=== PATIENT | female | born 1955 | race Caucasian/White ===

== ENCOUNTER 2017-10-24 09:17 | Inpatient (IN) | payer OTHER ==
[2017-10-21 11:15] VITALS: BMI 22.6
--- NOTE | 2017-10-24 08:02 | HP ---
Admitting History and Physical - Admission Chief Complaint: left hip osteoarthritis x years History of Present Illness: 62-year-old female presenting in regard to her left hip. Long-standing history of left hip osteoarthritis. Patient complains of pain, limited range of motion, difficulty ambulating, and difficulty with activities of daily living including putting on her socks and shoes. Patient has failed conservative treatment measures including PO medications, injections, exercise program, and activity modification. At this point she would like to proceed with a left total hip arthroplasty, MAKOplasty. History Source: Patient - Past Medical History Cardiovascular: Yes: HTN, Hyperlipdemia ...: No Musculoskeletal: Yes: Osteoarthritis - Smoking History Smoking history: Current every day smoker Have you smoked in the past 12 months: No Aproximately how many cigarettes per day: 2 - Alcohol/Substance Use Hx Alcohol Use: No Home Medications - Allergies Allergies/Adverse Reactions: Allergies Allergy/AdvReac Type Severity Reaction Status Date / Time No Known Allergies Allergy Verified 10/21/17 11:05 - Home Medications Home Medications: Ambulatory Orders Amlodipine Besylate [Norvasc -] 5 mg PO DAILY 10/21/17 Aspirin [ASA -] 325 mg PO DAILY 10/21/17 Multivitamins [Tab-A-Vit -] 1 tab PO DAILY 10/21/17 Simvastatin 5 mg PO HS 10/21/17 Review of Systems - Review of Systems Musculoskeletal: reports: Decreased ROM (left hip) Physical Examination Constitutional: Yes: Well Nourished, No Distress Eyes: Yes: Conjunctiva Clear HENT: Yes: Atraumatic, Normocephalic Neck: Yes: Supple Cardiovascular: Yes: Regular Rate and Rhythm Respiratory: Yes: Regular Gastrointestinal: Yes: Soft ...Rectal Exam: Yes: Guaiac Trace Musculoskeletal: Yes: Joint Stiffness (left hip) Assessment/Plan 62-year-old female presenting in regard to her left hip. Long-standing history of left hip osteoarthritis. Patient complains of pain, limited range of motion, difficulty ambulating, and difficulty with activities of daily living including putting on her socks and shoes. Patient has failed conservative treatment measures including PO medications, injections, exercise program, and activity modification. Pros, cins, risks, benefits, and alternatives of a left total hip arthroplasty MAKOplasty were discussed. Patient confirms her understanding and she would like to proceed with a left total hip arthroplasty, MAKOplasty.
[~2017-10-24 09:17] MED LIST: CEFAZOLIN 1 GM/D5W 1 GM/50 ML BAG IVPB ONE; ROPIVICAINE 0.2%/MORPH PF/KETOROLAC - 51ML DISP.SYRINGE IA ONE; TRANEXAMIC ACID 1000 MG/10 ML VIAL IVPUSH ONE
[2017-10-24] MEDS ORDERED: MIDAZOLAM HCL 2 MG/2 ML SINGLE DOSE VIAL ONE (09:50)
[2017-10-24] MEDS ORDERED: DEXAMETHASONE SOD PHOSPHATE/PF 10 MG/ML SDV ONE (09:50)
[2017-10-24] MEDS ORDERED: BUPIVACAINE HCL/PF (5 MG/ML) 30 ML VIAL IJ ONE (09:50)
[2017-10-24] MEDS ORDERED: EPINEPHrine/PF 1 MG/1 ML (1:1,000) AMPULE ONE (09:50)
[2017-10-24] MEDS ORDERED: PANTOPRAZOLE 40 MG TABLET (FP) ONE (10:36)
[2017-10-24] MEDS ORDERED: GABAPENTIN 300 MG CAPSULE (FP) ONE (10:37)
[2017-10-24] MEDS ORDERED: CELECOXIB 200 MG CAPSULE ONE (10:37)
[2017-10-24] MEDS ORDERED: oxyCODONE HCL 10 MG SUSTAINED ACTING TABLET ONE (10:37)
[2017-10-24] MEDS: CELECOXIB 200 MG CAPSULE PO ONE ×2 (10:40→16:27)
[2017-10-24] MEDS: GABAPENTIN 300 MG CAPSULE (FP) PO ONE ×2 (10:40→16:27)
[2017-10-24] MEDS: PANTOPRAZOLE 40 MG TABLET (FP) PO ONE ×2 (10:40→16:28)
[2017-10-24] MEDS: oxyCODONE HCL 10 MG SUSTAINED ACTING TABLET PO ONE ×2 (10:40→16:27)
[2017-10-24] MEDS ORDERED: BUPIVACAINE HCL/PF 0.5% (5MG/ML) 10 ML VIAL ONE (11:36)
[2017-10-24] MEDS ORDERED: ceFAZolin SODIUM 1 GM VIAL ONE (11:39)
[2017-10-24] MEDS ORDERED: TRANEXAMIC ACID 1000 MG/10 ML VIAL ONE (11:39)
[2017-10-24] MEDS ORDERED: ONDANSETRON 4 MG/2 ML VIAL IVPUSH PRN ×2 (12:33→14:51)
[2017-10-24] MEDS ORDERED: oxyCODONE HCL 5 MG TABLET PO PRN (12:37)
[2017-10-24] MEDS ORDERED: VANCOMYCIN 1,000 MG VIAL (RESTRICTED TO ID ONLY) IVPB ONE (12:43)
[2017-10-24] MEDS ORDERED: LACTATED RINGERS SOLUTION 1,000 ML IV SCH ×2 (12:45→15:00)
[2017-10-24] MEDS ORDERED: ROPIVICAINE 0.2%/MORPH PF/KETOROLAC - 51ML DISP.SYRINGE IA ONE (12:57)
[2017-10-24] MEDS ORDERED: TRANEXAMIC ACID 1000 MG/10 ML VIAL IVPB ONE (12:58)
--- NOTE | 2017-10-24 14:38 | OP ---
Operative Note - Note: Operative Date: 10/24/17 Pre-Operative Diagnosis: Left hip OA Operation: Left BRENDA Post-Operative Diagnosis: Same as Pre-op Surgeon: Omar Aquino Medical Supervisor: Kathie Levi Anesthesia: Spinal Estimated Blood Loss (mls): 200
[2017-10-24] MEDS ORDERED: traMADol HCL 50 MG TABLET ONE (14:41)
[2017-10-24] MEDS ORDERED: ACETAMINOPHEN INJECTION 100 ML IVPB ONE (14:41)
[2017-10-24] MEDS ORDERED: KETOROLAC TROMETHAMINE 30 MG/1 ML VIAL ONE (14:41)
[2017-10-24] MEDS ORDERED: MAGNESIUM HYDROX 2400MG/30ML ORAL SUSPENSION 30 ML CUP PO PRN (14:51)
[2017-10-24] MEDS ORDERED: MAG HYDROX/AL HYDROX/SIMETH 30 ML UNIT-DOSE CUP PO PRN (14:51)
[2017-10-24] MEDS ORDERED: ACETAMINOPHEN 1000 MG/100 ML VIAL (NON FORMULARY) IVPB ONE (14:55)
[2017-10-24] MEDS ORDERED: traMADol HCL 50 MG TABLET PO SCH (15:00)
[2017-10-24] MEDS: KETOROLAC TROMETHAMINE 30 MG/1 ML VIAL IVPUSH SCH ×2 (15:09→20:45)
[2017-10-24] MEDS: ACETAMINOPHEN 325 MG TABLET (FP) PO SCH ×2 (16:28→18:18)
[2017-10-24] MEDS: traMADol HCL 50 MG TABLET PO SCH ×2 (17:55→23:45)
[2017-10-24] MEDS: CEFAZOLIN 1 GM/D5W 1 GM/50 ML BAG IVPB SCH (18:03)
[2017-10-24] MEDS: ASCORBIC ACID 500 MG TABLET (FP) PO SCH (21:33)
[2017-10-24] MEDS: SENNOSIDES/DOCUSATE COMBO (SENNA PLUS) TABLET (UD) PO SCH (21:33)
[2017-10-24] MEDS: GABAPENTIN 300 MG CAPSULE (FP) PO SCH (21:33)
[2017-10-24] MEDS: CELECOXIB 200 MG CAPSULE PO SCH (21:34)
[2017-10-24] MEDS: oxyCODONE HCL 10 MG SUSTAINED ACTING TABLET PO SCH (21:34)
[2017-10-24] MEDS ORDERED: SIMVASTATIN 5 MG PO SCH (22:00)
[2017-10-24] MEDS ORDERED: GABAPENTIN 300 MG CAPSULE (FP) PO SCH (22:00)
[2017-10-24] MEDS ORDERED: DEXAMETHASONE SOD PHOSPHATE 10 MG/1 ML VIAL IVPB ONE (23:00)
[2017-10-25] MEDS: ACETAMINOPHEN 325 MG TABLET (FP) PO SCH ×4 (00:27→18:01)
[2017-10-25] MEDS: oxyCODONE HCL 5 MG TABLET PO PRN ×3 (00:27→18:02)
[2017-10-25] MEDS: CEFAZOLIN 1 GM/D5W 1 GM/50 ML BAG IVPB SCH (01:42)
[2017-10-25] MEDS: KETOROLAC TROMETHAMINE 30 MG/1 ML VIAL IVPUSH SCH ×2 (03:29→10:11)
[2017-10-25] MEDS: GABAPENTIN 300 MG CAPSULE (FP) PO SCH ×3 (06:03→21:56)
[2017-10-25] MEDS: traMADol HCL 50 MG TABLET PO SCH ×3 (06:04→18:02)
[2017-10-25 08:24] LABS: ANION GAP 4 (8-16); BLOOD UREA NITROGEN 23 mg/dl (7-18); CALCIUM 8.1 mg/dl (8.4-10.2); CHLORIDE 105 mmol/L (98-107); CO2 26 mmol/L (22-28); CREATININE 0.6 mg/dl (0.6-1.3); GLUCOSE,RANDOM 162 mg/dl (74-106); POTASSIUM 4.2 mmol/L (3.5-5.1); SODIUM 135 mmol/L (136-145)
[2017-10-25 08:47] LABS: HEMATOCRIT 27.5 % (32.4-45.2); MCH 27.4 pg (25.7-33.7); MCHC 32.7 g/dl (32.0-36.0); MEAN CELL VOLUME 83.9 fl (80-96); PLATELET COUNT 258 K/MM3 (134-434); RBC 3.27 M/mm3 (3.60-5.2); RDW 14.8 % (11.6-15.6); WHITE BLOOD COUNT 8.1 K/mm3 (4.0-10.8)
--- NOTE | 2017-10-25 09:58 | PN ---
Progress Note (short form) - Note Progress Note: 62F POD1 s/p left THR under spinal anesthetic with peripheral nerve blocks for post operative pain control. Pt states that pain is currently 0/10 at rest, 3/10 with exercise. AVSS. Sensory and motor function intact in bilateral lower extremities. Pain is well controlled. Pt does not report any anesthetic complications. Continue current regimen.
[2017-10-25] MEDS ORDERED: MULTIVITAMINS (DAILY MVI) TABLET (FP) PO SCH (10:00)
[2017-10-25] MEDS: ASPIRIN 325 MG TABLET PO SCH (10:07)
[2017-10-25] MEDS: SENNOSIDES/DOCUSATE COMBO (SENNA PLUS) TABLET (UD) PO SCH ×2 (10:08→21:55)
[2017-10-25] MEDS: MULTIVITAMINS (DAILY MVI) TABLET (FP) PO SCH (10:08)
[2017-10-25] MEDS: CELECOXIB 200 MG CAPSULE PO SCH ×2 (10:08→21:56)
[2017-10-25] MEDS: ASCORBIC ACID 500 MG TABLET (FP) PO SCH ×2 (10:08→21:56)
[2017-10-25] MEDS: PANTOPRAZOLE 40 MG TABLET (FP) PO SCH (10:08)
[2017-10-25] MEDS: amLODIPine BESYLATE 5 MG TABLET (FP) PO SCH (10:08)
[2017-10-25] MEDS: oxyCODONE HCL 10 MG SUSTAINED ACTING TABLET PO SCH ×2 (10:09→21:56)
--- NOTE | 2017-10-25 23:24 | PN ---
Progress Note (short form) - Note Progress Note: Pt seen and examined. Doing well. AVSS Selected Entries 10/25/17 21:00 Temperature 98.8 F Pulse Rate 73 Respiratory 18 Rate Blood Pressure 83/48 O2 Sat by Pulse 97 Oximetry (%) Laboratory Tests 10/25/17 10/25/17 07:23 07:23 WBC 8.1 Hgb 9.0 L Hct 27.5 L Plt Count 258 Sodium 135 L Potassium 4.2 Chloride 105 Carbon Dioxide 26 Anion Gap 4 L BUN 23 H Creatinine 0.6 Random Glucose 162 H Calcium 8.1 L Gen: NAD LLE: c/d/i, NVID A/P 62yo female POD#1 s/p L BRENDA 1. D/C home in AM after PT. F/U in office in 10-14 days.
[2017-10-26] MEDS: traMADol HCL 50 MG TABLET PO SCH ×2 (01:49→05:53)
[2017-10-26] MEDS: ACETAMINOPHEN 325 MG TABLET (FP) PO SCH ×2 (01:49→05:54)
[2017-10-26] MEDS: GABAPENTIN 300 MG CAPSULE (FP) PO SCH (05:53)
[2017-10-26 06:02] VITALS: BP 103/55; PULSE 70; TEMP 98.2
--- NOTE | 2017-10-26 07:57 | DS ---
Physical Examination Vital Signs: Vital Signs Temperature 98.2 F 10/26/17 06:00 Pulse Rate 70 10/26/17 06:00 Respiratory Rate 18 10/26/17 06:00 Blood Pressure 103/55 10/26/17 06:00 O2 Sat by Pulse Oximetry (%) 99 10/26/17 06:00 Labs: CBC, BMP 10/25/17 07:23 10/25/17 07:23 Discharge Summary Reason For Visit: LEFT HIP OSTEOARTHRITIS Current Active Problems Osteoarthritis of left hip (Acute) Procedures: Principal: BRENDA Hospital Course: Admitted for elective surgery. Procedure performed without complications. Pt received postoperative antibiotic prophylaxis and DVT ppx. Ambulated with physical therapy. Stable for discharge home with outpatient followup. Condition: Stable - Instructions Diet, Activity, Other Instructions: Dr Aquino - Hip Replacement Instructions Keep the Aquacel dressing on until removed by Dr. Aquino in 10-14 days - it is antibacterial and waterproof and you can shower with it on. Call the office for a follow-up appointment with Dr. Aquino in 10-14 days. Take one Aspirin 325mg daily for 6 weeks to prevent blood clots in your legs. Take one Pantoprazole 40mg daily for 6 weeks to protect against heartburn and ulcers. Take Celebrex 200mg twice daily for 30 days to reduce swelling and inflammation. Take Cephalexin (antibiotic) 3x/day for 2 weeks to prevent skin infection while the wound heals. Take a multivitamin, stool softener, and extra vitamin C supplement daily. For pain: *Mild pain (1-3/10): Take 1 Tramadol tablet every 4 hours as needed. Moderate pain (4-6/10): Take 1 Tramadol tablet and 1 Percocet tablet every 4 hours as needed. Severe pain (7-10/10): Take 1 Tramadol tablet and 2 Percocet tablets every 4 hours as needed. Activity: You can put as much weight on the operative leg as you want. For the first 6 weeks, all you need to do is walk around the house, go up/down stairs, and sit down/get up. After 6 weeks when everything is healed (and bone has grown into the implant) you will be sent for more intensive outpatient physical therapy. Always use a walker or cane for balance and to prevent falls. Disposition: [facility]/HOME HEALTH CARE - Home Medications Comprehensive Discharge Medication List: Ambulatory Orders Amlodipine Besylate [Norvasc -] 5 mg PO DAILY 10/21/17 Aspirin [ASA -] 325 mg PO DAILY 10/21/17 Multivitamins [Multivit ([facility] Formulary)] 1 tab PO DAILY 10/21/17 Simvastatin 5 mg PO HS 10/21/17 Gabapentin 600 mg PO TID 10/24/17 Ascorbic Acid [Vitamin C -] 500 mg PO BID tablet 10/26/17 Celecoxib [CeleBREX -] 200 mg PO BID #60 capsule 10/26/17 Cephalexin Monohydrate [Keflex -] 500 mg PO TID #42 capsule 10/26/17 Oxycodone HCl/Acetaminophen [Percocet 5-325 mg Tablet] 1 - 2 tab PO Q4H PRN #60 tablet MDD 8 10/26/17 Pantoprazole Sodium [Protonix -] 40 mg PO DAILY #40 tablet.ec 10/26/17 Sennosides/Docusate Sodium [Pericolace -] 2 tablet PO BID tablet 10/26/17 Tramadol HCl [Ultram -] 50 mg PO Q4H PRN #90 tablet MDD 6 10/26/17
[2017-10-26 08:12] LABS: HEMATOCRIT 22.8 % (32.4-45.2); HEMOGLOBIN 7.5 GM/dl (10.7-15.3); MCH 27.7 pg (25.7-33.7); MCHC 32.7 g/dl (32.0-36.0); MEAN CELL VOLUME 84.7 fl (80-96); PLATELET COUNT 187 K/MM3 (134-434); RBC 2.69 M/mm3 (3.60-5.2); RDW 15.8 % (11.6-15.6); WHITE BLOOD COUNT 5.6 K/mm3 (4.0-10.8)
[2017-10-26] MEDS: oxyCODONE HCL 5 MG TABLET PO PRN (08:19)
[2017-10-26 09:03] LABS: ANION GAP 5 (8-16); BLOOD UREA NITROGEN 25 mg/dl (7-18); CALCIUM 8.1 mg/dl (8.4-10.2); CHLORIDE 106 mmol/L (98-107); CO2 27 mmol/L (22-28); CREATININE 0.5 mg/dl (0.6-1.3); GLUCOSE,RANDOM 114 mg/dl (74-106); POTASSIUM 3.2 mmol/L (3.5-5.1); SODIUM 138 mmol/L (136-145)
[2017-10-26] MEDS: PANTOPRAZOLE 40 MG TABLET (FP) PO SCH (09:15)
[2017-10-26] MEDS: CELECOXIB 200 MG CAPSULE PO SCH (09:15)
[2017-10-26] MEDS: ASCORBIC ACID 500 MG TABLET (FP) PO SCH (09:16)
[2017-10-26] MEDS: SENNOSIDES/DOCUSATE COMBO (SENNA PLUS) TABLET (UD) PO SCH (09:16)
[2017-10-26] MEDS: MULTIVITAMINS (DAILY MVI) TABLET (FP) PO SCH (09:16)
[2017-10-26] MEDS: amLODIPine BESYLATE 5 MG TABLET (FP) PO SCH (09:16)
[2017-10-26] MEDS: ASPIRIN 325 MG TABLET PO SCH (09:16)
[2017-10-26] MEDS: oxyCODONE HCL 10 MG SUSTAINED ACTING TABLET PO SCH (09:16)
[2017-10-26] MEDS ORDERED: ATORVASTATIN CA 10 MG TABLET (FP) PO SCH (22:00)
--- NOTE | 2017-11-02 16:28 | PATH ---
Surgical Pathology Report Patient Name: KEON JUSTIN Med. Rec. #: [id number] /Age/Gender: 1955 (Age: 62) / F Account: [id number] Location: [facility] MED-SURG Taken: 10/24/2017 Received: 10/24/2017 Reported: 11/02/2017 Physicians: Omar Aquino M.D. Specimen(s) Received LEFT FEMORAL HEAD Clinical History Left hip osteoarthritis Final Diagnosis FEMORAL HEAD, LEFT, TOTAL HIP REPLACEMENT: DEGENERATIVE JOINT DISEASE. Electronically Signed Diana Alanis M.D. Gross Description Received in formalin, labeled "left femoral head," is a 4.4 x 4.4 x 3.5 cm. femoral head with a 1.2 cm in length portion of femoral neck attached. The margin of resection is smooth. There is a 5 cm in greatest dimension area of eburnation present. The remaining articular surface is elaine-yellow and diffusely granular. The underlying trabecular bone is yellow and hard. A field service representative section is submitted in one cassette, following decalcification. 10/26/2017 [facility]10/26/2017
== END 2017-10-26 11:33 | disposition home health service (06) | DRG 470 ==
LOC: FM/S 09:17
PROVIDERS: ADMIT Student in an Organized Health Care Education/Training Program; ATTEND Student in an Organized Health Care Education/Training Program
PROC: 8E0Y0CZ Robotic Assisted Procedure of Lower Extremity, Open Approach (ICD-10-PCS; 2017-10-24)
PROC: 0SRB01A Replacement of Left Hip Joint with Metal Synthetic Substitute, Uncemented, Open Approach (ICD-10-PCS; principal; 2017-10-24 12:20)
DX: M16.12 Unilateral primary osteoarthritis, left hip (principal); I10 Essential (primary) hypertension; E78.5 Hyperlipidemia, unspecified
CPT/HCPCS: 36415; 73502-TC-LT-FY; 80048; 85027; 88304-TC; 88311-TC; 94010; 94760; 97116-GP; 97162-GP; J1100

== ENCOUNTER 2018-04-03 06:00 | Day surgery (SDC) | payer OTHER ==
[2018-03-16 16:12] VITALS: BMI 22.6
--- NOTE | 2018-04-02 21:55 | HP ---
Admitting History and Physical - Admission Chief Complaint: right hip osteoarthritis x years History of Present Illness: 62 year old female presents regarding her right hip. Longstanding history of right hip osteoarthritis. Patient complains of pain, limited ROM, difficulty ambulating and difficulty with ADLs. Patient has failed conservative treatment options including PO medication, activity modifications, injections and exercise programs. At this point, patient wishes to proceed with surgical intervention - removal of hardware and right total hip arthroplasty (MAKOplasty) . History Source: Patient - Past Medical History Cardiovascular: Yes: HTN, Hyperlipdemia Heme/Onc: Yes: Anemia Musculoskeletal: Yes: Osteoarthritis - Past Surgical History Additional Past Surgical History: See written history & physical. - Smoking History Smoking history: Current every day smoker Have you smoked in the past 12 months: Yes Aproximately how many cigarettes per day: 3 - Alcohol/Substance Use Hx Alcohol Use: No Home Medications - Allergies Allergies/Adverse Reactions: Allergies Allergy/AdvReac Type Severity Reaction Status Date / Time No Known Allergies Allergy Verified 04/03/18 06:42 - Home Medications Home Medications: Ambulatory Orders Amlodipine Besylate [Norvasc -] 5 mg PO DAILY 10/21/17 Aspirin [ASA -] 325 mg PO DAILY 10/21/17 Multivitamins [Multivit ([facility] Formulary)] 1 tab PO DAILY 10/21/17 Simvastatin 5 mg PO HS 10/21/17 Gabapentin 600 mg PO TID 10/24/17 Ascorbic Acid [Vitamin C -] 500 mg PO BID tablet 10/26/17 Oxycodone HCl/Acetaminophen [Percocet 5-325 mg Tablet] 1 - 2 tab PO Q4H PRN #60 tablet MDD 8 10/26/17 traMADol HCL [Ultram -] 50 mg PO Q4H PRN #90 tablet MDD 6 10/26/17 Ferrous Sulfate [Feosol] 325 mg PO DAILY 03/16/18 Review of Systems - Review of Systems Musculoskeletal: reports: Decreased ROM (right hip), Joint Pain (right hip) Physical Examination Constitutional: Yes: Well Nourished, No Distress Eyes: Yes: Conjunctiva Clear HENT: Yes: Atraumatic, Normocephalic Neck: Yes: Supple Cardiovascular: Yes: Regular Rate and Rhythm Respiratory: Yes: Regular Gastrointestinal: Yes: Soft ...Rectal Exam: Yes: Deferred Musculoskeletal: Yes: Joint Stiffness (right hip) Assessment/Plan 62 year old female presents regarding her right hip. Longstanding history of right hip osteoarthritis. Patient complains of pain, limited ROM, difficulty ambulating and difficulty with ADLs. Patient has failed conservative treatment options including PO medication, activity modifications, injections and exercise programs. At this point, patient wishes to proceed with surgical intervention - removal of hardware and right total hip arthroplasty (MAKOplasty) . Pros, cons, risks, benefits and alternatives of a removal of hardware and right total hip arthoplasty, MAKOplasty was discussed with the patient at length. Patient confirms her understanding and consents to proceed with a removal of hardware and right total hip arthroplasty, MAKOplasty.
[2018-04-03] MEDS ORDERED: TRANEXAMIC ACID 1000 MG/10 ML VIAL IVPUSH ONE (06:10)
[2018-04-03] MEDS ORDERED: GABAPENTIN 300 MG CAPSULE (FP) PO ONE (06:10)
[2018-04-03] MEDS ORDERED: oxyCODONE HCL 10 MG SUSTAINED ACTING TABLET PO ONE (06:10)
[2018-04-03] MEDS ORDERED: ROPIVICAINE 0.2%/MORPH PF/KETOROLAC - 51ML DISP.SYRINGE IA ONE (06:10)
[2018-04-03] MEDS ORDERED: CEFAZOLIN 1 GM/D5W 1 GM/50 ML BAG IVPB ONE (06:10)
[2018-04-03] MEDS ORDERED: CELECOXIB 200 MG CAPSULE PO ONE (06:10)
[2018-04-03] MEDS ORDERED: PANTOPRAZOLE 40 MG TABLET (FP) PO ONE (06:11)
[2018-04-03 06:56] VITALS: BP 101/66; PULSE 70; TEMP 97.9
[2018-04-03] MEDS ORDERED: PANTOPRAZOLE 40 MG TABLET (FP) ONE (06:58)
[2018-04-03] MEDS ORDERED: oxyCODONE HCL 10 MG SUSTAINED ACTING TABLET ONE (06:59)
[2018-04-03] MEDS ORDERED: GABAPENTIN 300 MG CAPSULE (FP) ONE (06:59)
[2018-04-03] MEDS ORDERED: CELECOXIB 200 MG CAPSULE ONE (06:59)
[2018-04-03] MEDS ORDERED: TRANEXAMIC ACID 1000 MG/10 ML VIAL ONE (07:15)
[2018-04-03] MEDS ORDERED: ceFAZolin SODIUM 1 GM VIAL ONE (07:15)
[2018-04-03] MEDS ORDERED: VANCOMYCIN 1,000 MG VIAL (RESTRICTED TO ID ONLY) ONE (07:15)
[2018-04-03] MEDS ORDERED: EPINEPHrine/PF 1 MG/1 ML (1:1,000) AMPULE ONE (07:32)
[2018-04-03] MEDS ORDERED: DEXAMETHASONE SOD PHOSPHATE/PF 10 MG/ML SDV ONE (07:32)
[2018-04-03] MEDS ORDERED: BUPIVACAINE HCL/PF (5 MG/ML) 30 ML VIAL IJ ONE (07:33)
[2018-04-03] MEDS ORDERED: MIDAZOLAM HCL 2 MG/2 ML SINGLE DOSE VIAL ONE (07:33)
[2018-04-03] MEDS ORDERED: LIDOCAINE 1% P/F 10 MG/ML VIAL ONE (07:33)
--- NOTE | 2018-04-03 08:12 | PN ---
Progress Note (short form) - Note Progress Note: Surgery canceled because pt has active shingles infection - vesicular rash present in dermatomal distribution from mid back around to anterior chest. Multiple fluid-filled vesicles and erythematous surrounding skin. Pt denies pain. I explained to her that it is not advisable to proceed with a nonurgent/ elective surgery in an immunocompromised state. Pt will be sent to ER for further management and initiation of antivirals. She was directed to also f/u with her PCP O[facility]. Surgery will be rescheduled once the rash has healed.
== END 2018-04-03 08:59 | disposition home or self-care (01) | DRG 554 ==
LOC: FASU 06:00 → EDSTATUS 08:00 → FASU 08:59 → UNDODISIN 09:50
PROVIDERS: ATTEND Student in an Organized Health Care Education/Training Program
DX: M16.11 Unilateral primary osteoarthritis, right hip (principal); I10 Essential (primary) hypertension; E78.5 Hyperlipidemia, unspecified; F17.210 Nicotine dependence, cigarettes, uncomplicated; D64.9 Anemia, unspecified; Z53.09 Procedure and treatment not carried out because of other contraindication; B02.9 Zoster without complications